=== PATIENT | male | born 1960 | race African-American/Black ===

== ENCOUNTER → 2019-02-26 | Outpatient (CLI) | payer BC ==
--- NOTE | 2019-02-26 16:38 | RADIOLOGY REPORT (SQ) ---
EXAM DESCRIPTION: FINGERS LEFT COMPLETED DATE/TIME: 02/26/2019 4:13 pm REASON FOR STUDY: PAIN OF LEFT THUMB M79.645 PAIN IN LEFT FINGER(S) COMPARISON: None. NUMBER OF VIEWS: Three views. TECHNIQUE: AP, lateral, and oblique images acquired of the left thumb. LIMITATIONS: None. FINDINGS: MINERALIZATION: Normal. BONES: No acute fracture or dislocation. No worrisome bone lesions. No significant osteophytes. JOINTS: No erosions. No mingo-articular osteopenia. No chondrocalcinosis. SOFT TISSUES: No swelling. No calcifications. OTHER: No other significant finding. IMPRESSION: NEGATIVE RADIOGRAPHS OF THE LEFT THUMB. NO EXPLANATION FOR PAIN. TECHNICAL DOCUMENTATION: JOB ID: [id number] [employer]- All Rights Reserved Reading location - IP/workstation name: [email or web address]
== END ==
LOC: OD 15:57
PROVIDERS: ATTEND Nurse Practitioner Family
DX: M79.645 Pain in left finger(s) (principal)

== ENCOUNTER → 2019-03-04 | Outpatient (CLI) | payer BC ==
[2019-03-04 08:39] LABS: ABSOLUTE EOSINOPHILS # (AUTO) 0.3 10^3/uL (0.0-0.6); ABSOLUTE LYMPHOCYTES (AUTO) 1.8 10^3/uL (0.5-4.7); ABSOLUTE MONOCYTES (AUTO) 0.5 10^3/uL (0.1-1.4); ABSOLUTE NEUT (AUTO) 3.8 10^3/uL (1.7-8.2); BASOPHILS % (AUTO) 0.7 % (0-2); EOSINOPHILS % (AUTO) 4.2 % (0-6); HEMATOCRIT 41.1 % (37.9-51.0); HEMOGLOBIN 14.1 g/dL (13.5-17.0); LYMPHOCYTES % (AUTO) 27.8 % (13-45); MEAN CORPUSCULAR HGB CONC 34.2 g/dL (32.0-36.0); MEAN CORPUSCULAR VOLUME 93 fl (80-97); MONOCYTES % (AUTO) 8.1 % (3-13); PLATELET COUNT 369 10^3/uL (150-450); RED BLOOD COUNT 4.39 10^6/uL (4.35-5.55); RED CELL DISTRIBUTION WIDTH 13.6 % (11.5-14.0); SEGMENTED NEUTROPHILS % (AUTO) 59.2 % (42-78); TOTAL CELLS COUNTED % (AUTO) 100 %; WHITE BLOOD COUNT 6.5 10^3/uL (4.0-10.5)
[2019-03-04 09:05] LABS: ALBUMIN 4.3 g/dL (3.5-5.0); ALKALINE PHOSPHATASE 84 U/L (38-126); ANION GAP 10 (5-19); ASPARTATE AMINO TRANSFERASE 19 U/L (17-59); BILIRUBIN,TOTAL 0.4 mg/dL (0.2-1.3); BLOOD UREA NITROGEN 16 mg/dL (7-20); CALCIUM 9.5 mg/dL (8.4-10.2); CARBON DIOXIDE 26 mmol/L (22-30); CHLORIDE 104 mmol/L (98-107); CHOLESTEROL 198.29 mg/dL (0-200); GLUCOSE 96 mg/dL (75-110); POTASSIUM 4.9 mmol/L (3.6-5.0); TOTAL PROTEIN 7.8 g/dL (6.3-8.2); TRIGLYCERIDES 114 mg/dL (<150)
[2019-03-04 09:16] LABS: DIRECT LDL 111 mg/dL (<100)
[2019-03-04 10:26] LABS: FREE T4 (FREE THYROXINE) 0.94 ng/dL (0.78-2.19)
[2019-03-04 10:40] LABS: THYROID STIMULATING HORMONE 2.6 uIU/mL (0.47-4.68)
== END ==
LOC: OD 07:51
PROVIDERS: ATTEND Nurse Practitioner Family
DX: I10 Essential (primary) hypertension (principal)
CPT/HCPCS: 36415; 80053; 80061; 83036; 84439; 84443; 85025

== ENCOUNTER → 2019-04-10 | Outpatient (CLI) | payer BC ==
--- NOTE | 2019-04-10 14:02 | RADIOLOGY REPORT (SQ) ---
EXAM DESCRIPTION: CT HEAD WITHOUT COMPLETED DATE/TIME: 04/10/2019 1:38 pm REASON FOR STUDY: HEADACHE (R51) R51 HEADACHE COMPARISON: None. TECHNIQUE: Axial images acquired through the brain without intravenous contrast. Images reviewed wi th bone, brain and subdural windows. Additional sagittal and coronal reconstructions were generated. Images stored on PACS. All CT scanners at this facility use dose modulation, iterative reconstruction, and/or weight based d osing when appropriate to reduce radiation dose to as low as reasonably achievable (ALARA). [facility]: Dose Right [facility]: CareDose [facility]: Dose Right [facility]: Teradose 4D [facility]: Performable RADIATION DOSE: CT Rad equipment meets quality standard of care and radiation dose reduction techniq ues were employed. CTDIvol: 48.7 mGy. DLP: 1004 mGy-cm. LIMITATIONS: None. FINDINGS: There is no acute intracranial hemorrhage, vascular territorial infarct, extra-axial fluid collection, mass effect or midline shift. The waggoner-white matter differentiation is preserved. There is no effacement of the cerebral sulci or basal subarachnoid cisterns. The caliber the ventricles is concordant with the degree of sulcation. The orbits and globes are intact. The paranasal sinuses are clear. There is no fracture of the calv arium. IMPRESSION: No acute intracranial abnormality. EVIDENCE OF ACUTE STROKE: NO. COMMENT: Quality ID # [id number]: Final reports with documentation of one or more dose reduction techniques (e.g., Automated exposure control, adjustment of the mA and/or kV according to patient size, use of iterative reconstruction technique) TECHNICAL DOCUMENTATION: JOB ID: [id number] 2010 [employer]- All Rights Reserved Reading location - IP/workstation name: [facility]
== END ==
LOC: RAD 13:08
PROVIDERS: ATTEND Nurse Practitioner Family
DX: R51 Headache (principal)
CPT/HCPCS: 70450

== ENCOUNTER → 2019-06-25 | Outpatient (CLI) | payer BC ==
[2019-06-25 13:08] LABS: ABSOLUTE EOSINOPHILS # (AUTO) 0.1 10^3/uL (0.0-0.6); ABSOLUTE LYMPHOCYTES (AUTO) 1.9 10^3/uL (0.5-4.7); ABSOLUTE MONOCYTES (AUTO) 0.5 10^3/uL (0.1-1.4); ABSOLUTE NEUT (AUTO) 3.7 10^3/uL (1.7-8.2); BASOPHILS % (AUTO) 0.7 % (0-2); EOSINOPHILS % (AUTO) 2.4 % (0-6); HEMATOCRIT 41.1 % (37.9-51.0); HEMOGLOBIN 14.2 g/dL (13.5-17.0); LYMPHOCYTES % (AUTO) 30.3 % (13-45); MEAN CORPUSCULAR HEMOGLOBIN 32.2 pg (27.0-33.4); MEAN CORPUSCULAR HGB CONC 34.5 g/dL (32.0-36.0); MEAN CORPUSCULAR VOLUME 93 fl (80-97); MONOCYTES % (AUTO) 7.8 % (3-13); PLATELET COUNT 331 10^3/uL (150-450); RED BLOOD COUNT 4.41 10^6/uL (4.35-5.55); RED CELL DISTRIBUTION WIDTH 14.5 % (11.5-14.0); SEGMENTED NEUTROPHILS % (AUTO) 58.8 % (42-78); TOTAL CELLS COUNTED % (AUTO) 100 %; WHITE BLOOD COUNT 6.2 10^3/uL (4.0-10.5)
[2019-06-25 13:31] LABS: ALBUMIN 4.4 g/dL (3.5-5.0); ALKALINE PHOSPHATASE 104 U/L (38-126); ANION GAP 11 (5-19); ASPARTATE AMINO TRANSFERASE 20 U/L (17-59); BILIRUBIN,TOTAL 0.5 mg/dL (0.2-1.3); BLOOD UREA NITROGEN 12 mg/dL (7-20); CALCIUM 9.1 mg/dL (8.4-10.2); CARBON DIOXIDE 25 mmol/L (22-30); CHLORIDE 103 mmol/L (98-107); CHOLESTEROL 148.52 mg/dL (0-200); GLUCOSE 99 mg/dL (75-110); POTASSIUM 4.3 mmol/L (3.6-5.0); TOTAL PROTEIN 7.7 g/dL (6.3-8.2); TRIGLYCERIDES 84 mg/dL (<150)
[2019-06-25 13:44] LABS: DIRECT LDL 71 mg/dL (<100)
[2019-06-25 13:45] LABS: FREE T4 (FREE THYROXINE) 1.12 ng/dL (0.78-2.19)
[2019-06-25 13:50] LABS: ALKALINE PHOSPHATASE 104 U/L (38-126); ASPARTATE AMINO TRANSFERASE 20 U/L (17-59); BILIRUBIN,TOTAL 0.5 mg/dL (0.2-1.3); CHOLESTEROL 148.52 mg/dL (0-200); DIRECT LDL 71 mg/dL (<100); TOTAL PROTEIN 7.7 g/dL (6.3-8.2); TRIGLYCERIDES 84 mg/dL (<150)
[2019-06-25 13:51] LABS: ALBUMIN 4.4 g/dL (3.5-5.0)
[2019-06-25 13:59] LABS: THYROID STIMULATING HORMONE 1.68 uIU/mL (0.47-4.68)
== END ==
LOC: OD 12:02
PROVIDERS: ATTEND Physician Assistant
DX: E78.2 Mixed hyperlipidemia (principal); E78.5 Hyperlipidemia, unspecified; I10 Essential (primary) hypertension; G62.9 Polyneuropathy, unspecified; Z79.899 Other long term (current) drug therapy
CPT/HCPCS: 36415; 80061; 80076; 83036; 84439; 84443; 85025; 87070

== ENCOUNTER → 2019-08-08 | Outpatient (CLI) | payer BC ==
[2019-08-08 13:19] LABS: ANION GAP 10 (5-19); BLOOD UREA NITROGEN 17 mg/dL (7-20); CALCIUM 9.2 mg/dL (8.4-10.2); CARBON DIOXIDE 25 mmol/L (22-30); CHLORIDE 103 mmol/L (98-107); GLUCOSE 89 mg/dL (75-110); POTASSIUM 4.9 mmol/L (3.6-5.0)
== END ==
LOC: OD 11:04
PROVIDERS: ATTEND Physician Assistant
DX: R07.9 Chest pain, unspecified (principal); I10 Essential (primary) hypertension
CPT/HCPCS: 36415; 80048

== ENCOUNTER 2019-12-17 09:47 | Emergency (ER) | payer BC ==
[2019-12-17 10:00] VITALS: BP 129/75
--- NOTE | 2019-12-17 10:49 | ER Document Report ---
HPI - HPI Time Seen by Provider: 12/17/19 10:36 Pain Level: 2 Notes: 59-year-old male presents emergency room today with complaints of right upper eyelid irritation and slight swelling for the last week. Denies wearing contacts. Patient has been established with an smocking machine operator for pre-existing cataract issues. Denies any eye trauma, new blurred vision double vision loss of vision. Patient does wear eyeglasses. Denies any drainage from eyes, exudate from eyes. Last seen by the smocking machine operator last month and had a dilated eye exam. Denies fevers, chills, chest pain,palpitations, shortness of breath, dyspnea, nausea, vomiting, diarrhea, abdominal pain, hematuria, LH, dizziness, syncope, headaches, wheezing, ST, URI, neck pain, weakness, bowel or bladder dysfunction, saddle anesthesia, numbness or tingling in bilateral upper or lower extremities equally, muscle paralysis, weakness in bilateral upper or lower extremities equally or rash. Denies IV drug use. Past Medical History - General Information source: Patient - Social History Smoking Status: Former Smoker Chew tobacco use (# tins/day): No Drug Abuse: None Family History: Reviewed & Not Pertinent Patient has homicidal ideation: No Vertical Provider Document - CONSTITUTIONAL Agree With Documented VS: Yes Exam Limitations: No Limitations General Appearance: WD/WN Notes: MEDICATIONS: I agree with the patient medications as charted by the RN. ALLERGIES: I agree with the allergies as charted by the RN. PAST MEDICAL HISTORY/PAST SURGICAL HISTORY: Reviewed and agree as charted by RN. SOCIAL HISTORY: Reviewed and agree as charted by RN. FAMILY HISTORY: No significant familial comorbid conditions directly related to patient complaint EXAM: Reviewed vital signs as charted by RN. PHYSICAL EXAMINATION:reviewed vital signs by RN GENERAL: Well-appearing, well-nourished and in no acute distress. HEAD: Atraumatic, normocephalic. EYES: Noted right upper eyelid with swelling at inner canthus. Sclera without injection bilaterally. Pupils equal round and reactive to light, extraocular movements intact, sclera anicteric, conjunctiva are normal. No exudates. No periorbital tenderness or swelling bilaterally. ENT: Nares patent, oropharynx clear without exudates. Moist mucous membranes. No septal hematoma bilaterally NECK: Normal range of motion, supple without lymphadenopathy LUNGS: Breath sounds clear to auscultation bilaterally and equal. No wheezes rales or rhonchi. HEART: Regular rate and rhythm without murmurs ABDOMEN: Soft, nontender, nondistended abdomen. No guarding, no rebound. No masses appreciated. Musculoskeletal: Normal range of motion, no pitting or edema. No cyanosis. NEUROLOGICAL: Cranial nerves grossly intact. Normal speech, normal gait. Normal sensory, motor exams PSYCH: Normal mood, normal affect. SKIN: Warm, Dry, normal turgor, no rashes or lesions noted. - INFECTION CONTROL TRAVEL OUTSIDE OF THE [place] IN LAST 30 DAYS: No Course - Re-evaluation Re-evalutation: 12/17/19 10:49 Febrile vital stable no distress. Nurses notes reviewed. Discussed with patient that he does need to use eyedrops as directed, to apply warm compress to site 20 minutes on 20 minutes off several times a day. To call his smocking machine operator today to make a follow-up appointment either today or tomorrow. Advised to return to the emergency room if his symptoms become worse such as fever, worsening pain, swelling, chest pain or shortness of breath. After performing a Medical Screening Examination, I estimate there is LOW risk for a RETAINED CORNEAL or LID FOREIGN BODY, DEEP SPACE INFECTION (e.g., ORBITAL CELLULITIS OR ABSCESS), ACUTE GLAUCOMA, PENETRATING GLOBE INJURY, RETINAL DETACHMENT, or MENINGITIS thus I consider the discharge disposition reasonable. I have reevaluated this patient multiple times and no significant life threatening changes are noted. Also, there is no evidence or peritonitis, sepsis, or toxicity. The patient and I have discussed the diagnosis and risks, and we agree with discharging home with outpatient follow-up with the understanding that symptoms and presentations can change. We also discussed returning to the Emergency Department immediately if new or worsening symptoms occur. We have discussed the symptoms which are most concerning (e.g., changing or worsening pain, vision changes, neck stiffness or fever) that necessitate immediate return. - Vital Signs Vital signs: Temp Pulse Resp BP Pulse Ox 98.4 F 70 14 129/75 H 99 12/17/19 09:59 12/17/19 09:59 12/17/19 09:59 12/17/19 09:59 12/17/19 09:59 Discharge - Discharge Clinical Impression: Hordeolum externum right upper eyelid Condition: Stable Disposition: HOME, SELF-CARE Instructions: Eyedrop Use ([facility]), Sty ([facility], [facility]) Additional Instructions: Please follow-up with smocking machine operator within the next 24 to 48 hours. Please use antibiotics eye drops as directed. Warm compress to your eyelid 20 minutes on 20 minutes off several times a day. Please return to the emergency room if you experience any worsening symptoms. Return immediately for any new or worsening symptoms. Follow up with primary care provider, call tomorrow to make followup appointment. Prescriptions: Polymyxin B Sulfate/Tmp [Polytrim Oph Soln 10 ml] 1 drop OP ASDIR PRN #1 bottle PRN Reason: Referrals: CHARIS MADRIGAL PA-C [Primary Care Provider] - Follow up as needed GUERO MICHAEL MD [ACTIVE STAFF] - Follow up as needed
== END 2019-12-17 10:51 | disposition home or self-care (01) ==
LOC: ER 09:47
DX: H00.011 Hordeolum externum right upper eyelid (principal); H57.11 Ocular pain, right eye; H57.89 Other specified disorders of eye and adnexa; Z87.891 Personal history of nicotine dependence
CPT/HCPCS: 99283

== ENCOUNTER → 2019-12-19 | Outpatient (CLI) | payer BC ==
[2019-12-19 12:43] LABS: ALBUMIN 4.3 g/dL (3.5-5.0); ALKALINE PHOSPHATASE 103 U/L (38-126); ASPARTATE AMINO TRANSFERASE 21 U/L (17-59); BILIRUBIN,DIRECT 0.1 mg/dL (0.0-0.4); BILIRUBIN,TOTAL 0.5 mg/dL (0.2-1.3); CHOLESTEROL 98.85 mg/dL (0-200); TOTAL PROTEIN 7.7 g/dL (6.3-8.2); TRIGLYCERIDES 67 mg/dL (<150)
[2019-12-19 12:54] LABS: DIRECT LDL 35 mg/dL (<100)
--- OUTSIDE RECORDS SUMMARY | 2019-12-20 15:19 | XMS REPORT ---
:1960 Author Organization [facility] Address [facility] [place] [address] [place] [id number] Care Team Providers Name Role Phone Alexus Attending Clinician Unavailable Porcheron Attending Clinician Unavailable Allergies, Adverse Reactions, Alerts Allergy Allergy Type Status Severity Reaction(s) Onset Inactive Treat ing Comments Name Date Date Clinician Fish Miscellaneous Active Unknown allergy 1-21 00:00: 00 Shellfish Allergy to Active Vomiting Derived substance Medications This patient has no known medications. Problems Condition Condition Condition Status Onset Resolution Last Treatin g Comments Name Details Category Date Date Treatment Clinician Date Pain in Pain in Problem Active finger Finger 2-05 00:00: 00 Procedures Procedure Date / Time Performed Performing Clinician Lucyc e OFFICE/OUTPATIENT VISIT EST 2019-10-03 09:15:00 OFFICE/OUTPATIENT VISIT EST 2019-06-03 13:15:00 OFFICE/OUTPATIENT VISIT EST 2019-04-04 14:45:00 OFFICE/OUTPATIENT VISIT [facility] 2019-02-26 14:30:00 Results Test Description Test Time Test Comments Text Results Atomic Results Result Comments HEMOGLOBIN A1c WITH eAG 2019-10-03 10:39:00 Test Item Value Reference Range Comments eAG (mg/dL) (test code = 93332298) 123 (calc) HEMOGLOBIN A1c (test code = 4548-4) 5.9 % of total Hgb <5.7 eAG (mmol/L) (test code = 65773674) 6.8 (calc) CBC (INCLUDES DIFF/PLT)2019-10-03 10:39:00 Test Item Value Reference Range Comments MCV (test code = 63583196) 94.9 fL 80.0-100.0 MCHC (test code = 02711231) 33.2 g/dL 32.0-36.0 ABSOLUTE NEUTROPHILS (test code = 19801065) 4956 cells/uL 1500 -7800 PLATELET COUNT (test code = 31524316) 340 Thousand/uL 140-400 ABSOLUTE LYMPHOCYTES (test code = 05704708) 1590 cells/uL 850- 3900 ABSOLUTE MONOCYTES (test code = 37654020) 405 cells/uL 200-95 0 HEMOGLOBIN (test code = 06271862) 14.1 g/dL 13.2-17.1 RED BLOOD CELL COUNT (test code = 52076426) 4.48 Million/uL 4.20 -5.80 ABSOLUTE EOSINOPHILS (test code = 70566550) 107 cells/uL 15-5 00 MCH (test code = 29123070) 31.5 pg 27.0-33.0 ABSOLUTE BASOPHILS (test code = 34647273) 43 cells/uL 0-200 MPV (test code = 88871278) 9.3 fL 7.5-12.5 BASOPHILS (test code = 29011232) 0.6 % NEUTROPHILS (test code = 56005426) 69.8 % MONOCYTES (test code = 69877596) 5.7 % WHITE BLOOD CELL COUNT (test code = 7.1 Thousand/uL 3.8-10.8 10381442) EOSINOPHILS (test code = 61887927) 1.5 % LYMPHOCYTES (test code = 60121957) 22.4 % RDW (test code = 86718509) 14.1 % 11.0-15.0 HEMATOCRIT (test code = 03455367) 42.5 % 38.5-50.0 LIPID PANEL WITH REFLEX TO DIRECT [id number] 10:39:00 Test Item Value Reference Range Comments HDL CHOLESTEROL (test code = 95387465) 45 mg/dL > OR = 40 LDL-CHOLESTEROL (test code = 49531432) 64 mg/dL (calc) CHOLESTEROL, TOTAL (test code = 70090281) 124 mg/dL <200 CHOL/HDLC RATIO (test code = 32005157) 2.8 (calc) <5.0 TRIGLYCERIDES (test code = 73180054) 70 mg/dL <150 NON HDL CHOLESTEROL (test code = 91301240) 79 mg/dL (calc) <130 [id number] 10:39:001.95PSA, [id number] 10:39:000.9COMPREHENSIVE METABOLIC [id number] 10:39:00 Test Item Value Reference Range Comments CARBON DIOXIDE (test code = 36629649) 25 mmol/L 20-32 GLUCOSE (test code = 25879154) 97 mg/dL 65-99 PROTEIN, TOTAL (test code = 16469991) 7.6 g/dL 6.1-8.1 eGFR NON-AFR. KAZAKH (test code = 76 mL/min/1.73m2 > OR = 60 93813008) CALCIUM (test code = 45875872) 9.4 mg/dL 8.6-10.3 AST (test code = 45165793) 12 U/L 10-35 ALKALINE PHOSPHATASE (test code = 94 U/L 35-144 39651532) ALBUMIN/GLOBULIN RATIO (test code = 1.4 (calc) 1.0-2.5 81942427) SODIUM (test code = 10739081) 139 mmol/L 135-146 BILIRUBIN, TOTAL (test code = 0.5 mg/dL 0.2-1.2 15881137) GLOBULIN (test code = 99685827) 3.2 g/dL (calc) 1.9-3.7 CHLORIDE (test code = 57399249) 105 mmol/L 98-110 ALT (test code = 88616759) 17 U/L 9-46 CREATININE (test code = 31999220) 1.05 mg/dL 0.70-1.25 BUN/CREATININE RATIO (test code = NOT APPLICABLE (calc) 6-22 40516564) POTASSIUM (test code = 65083435) 4.4 mmol/L 3.5-5.3 ALBUMIN (test code = 90488347) 4.4 g/dL 3.6-5.1 UREA NITROGEN (BUN) (test code = 13 mg/dL 7-25 05711238) eGFR (test code = 88 mL/min/1.73m2 > OR = 60 16200529) Assessments Condition Name Status Diagnosis Date Treating Clinici an Mixed hyperlipidemia Active Polyneuropathy, unspecified Active Essential (primary) hypertension Active Chronic obstructive pulmonary disease, Active unspecified Polyneuropathy, unspecified Active Essential (primary) hypertension Active 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 Other mcfp (current) drug therapy Active Headache Active Oth symptoms and signs involving the Active musculoskeletal system Pleurodynia Active Body mass index (BMI) 32.0-32.9, adult Active Pain in finger Active 2019-03-13 15:16:10 Trigger thumb of left hand Active 2019-03-13 15:31:17 Essential (primary) hypertension Active Polyneuropathy, unspecified Active Chronic obstructive pulmonary disease, Active unspecified Pain in left finger(s) Active Encounters Start End Encounter Admission Attending Care Care Encounter Date/Time Date/Time Type Type Clinicians Facility Department ID 2019-10-03 2019-10-03 Outpatient [facility] D [id number] 09:15:00 09:15:00 Bryon Yee [id number] s [id number] and [id number] [facility], 2019-06-03 2019-06-03 [id number] 13:15:00 13:15:00 Medardo Yee [id number] s [id number] [id number] 2019-04-04 2019-04-04 [facility] [id number] 14:45:00 14:45:00 Medardo Yee [id number] s [id number] and [id number] [facility], 2019-03-13 2019-03-13 Manjinder Wong [id number] 00:00:00 00:00:00 [facility] [id number] MD [facility] [address] [place] [address], [facility] [address] [address], Ph. 2019-02-26 2019-02-26 [facility] [id number] 14:30:00 14:30:00 Medardo Yee [id number] s [id number] and [id number] [facility], Social History Smoking Status Start Date Stop Date Never Smoker Vital Signs Vital Name Observation Time Observation Value Comments Height 2019-03-13 00:00:00 69 [in_i] BMI (Body Mass Index) 2019-03-13 00:00:00 31 kg/m2 Body Weight 2019-03-13 00:00:00 210 [lb_av] Hospital Discharge Instructions 1. Pain in finger 2. Trigger thumb of left hand Discussion Note: None recorded. Patient educational handouts: No information available.
== END ==
LOC: OD 10:45
PROVIDERS: ATTEND Physician Assistant
DX: E78.2 Mixed hyperlipidemia (principal); Z79.899 Other long term (current) drug therapy
CPT/HCPCS: 36415; 80061; 80076

== ENCOUNTER → 2020-03-06 | Outpatient (CLI) | payer BC ==
[2020-03-06 14:01] LABS: ANION GAP 9 (5-19); BLOOD UREA NITROGEN 10 mg/dL (7-20); CALCIUM 8.8 mg/dL (8.4-10.2); CARBON DIOXIDE 27 mmol/L (22-30); CHLORIDE 102 mmol/L (98-107); GLUCOSE 100 mg/dL (75-110); POTASSIUM 4.4 mmol/L (3.6-5.0)
== END ==
LOC: OD 12:54
PROVIDERS: ATTEND Physician Assistant
DX: I10 Essential (primary) hypertension (principal); R00.2 Palpitations
CPT/HCPCS: 36415; 80048